=== PATIENT | female | born 1995 | race Two or more races ===

== ENCOUNTER 2016-06-07 21:17 | Emergency (ER) | payer OTHER ==
[2016-06-07 22:24] LABS: PH,URINE 6.5 (5.0-8.0); URINE BILIRUBIN NEGATIVE (NEGATIVE); URINE BLOOD NEGATIVE (NEGATIVE); URINE GLUCOSE (UA) NEGATIVE (NEGATIVE); URINE LEUKOCYTE ESTERASE NEGATIVE (NEGATIVE); URINE NITRITE NEGATIVE (NEGATIVE); URINE PROTEIN NEGATIVE (NEGATIVE); URINE UROBILINOGEN NORMAL (0-1 mg/dl)
[2016-06-07 22:25] LABS: URINE APPEARANCE CLEAR; URINE COLOR YELLOW
[2016-06-07 22:27] LABS: HCG,QUALITATIVE URINE POSITIVE
[2016-06-08 00:34] LABS: ABSOLUTE NEUTROPHIL COUNT 8.6 K/mm3 (1.8-7.7); BASO # 0.1 K/mm3 (0.0-0.2); BASO % 0.7 % (0.2-1.0); EOS # 0.2 (0.0-0.5); EOS % 1.2 % (0.9-2.9); HEMATOCRIT 42.6 % (37.0-47.0); HEMOGLOBIN 14.1 gm/l (12.0-16.0); IMM NEUT # 0.1 K/mm3 (0-0.2); IMM NEUT% 0.7 % (0-1); LYMPH # 3.8 (1.0-4.8); LYMPH % 28.3 % (15-45); MEAN CELL VOLUME 86.1 fl (81.0-99.0); MEAN CORPUSCULAR HEMOGLOBIN 28.5 pg (27.0-31.0); MEAN CORPUSCULAR HGB CONC 33.1 g/dl (33.0-37.0); MEAN PLATELET VOLUME 10.6 fl (7.4-10.4); MONO # 0.8 (0.0-0.8); MONO % 5.8 % (4-12); NEUT % 63.3 % (43-75); PLATELET COUNT 248 K/mm3 (130-400); RED CELL DISTRIBUTION WIDTH 14.3 % (11.5-14.5)
[2016-06-08] MEDS ORDERED: ACETAMINOPHEN 325 MG TABLET ONE (00:55)
[2016-06-08 01:05] LABS: ALB/GLOB RATIO 1.4 (>1.0); CALCIUM 10.2 mg/dL (8.6-10.3)
--- NOTE | 2016-06-08 09:39 | US ---
Exam: Complete obstetric ultrasound less than 14 weeks COMPARISON: None INDICATION: Low abdominal pain for 4 days. Findings: Transabdominal and transvaginal obstetric ultrasound less than 14 weeks was obtained. Real-time sonographic imaging demonstrated a single live intrauterine with a heart rate of 101 bpm. [place]-rump length of 4 mm correlates with a gestational age of 6 weeks 1 day and a sonographic ERIC of 01/31/2017. Gestational sac is normal in size and contour. No perigestational hemorrhage is identified. Normal yolk sac is seen. Right ovary measures 3.0 x 1.7 x 2.3 cm and left ovary measures 3.1 x 2.8 x 1.6 cm. There is no cystic or solid ovarian mass. Blood flow is present within both ovaries. There is no significant free fluid in cul-de-sac. IMPRESSION: No findings identified to explain low abdominal pain. Single live intrauterine approximately 6 weeks 1 day gestation with a heart rate of 101 bpm. Sonographic ERIC is 01/31/2017. Preliminary report transmitted to the emergency department from [facility] at 0214 hours 06/08/2016.
[2016-06-10 08:32] LABS: CHLAMYDIA BD Negative (Negative); N.GONORRHOEAE BD Negative (Negative); SOURCE Urine (())
== END 2016-06-08 03:30 | disposition home or self-care (01) ==
LOC: ED 21:17
DX: O20.0 Threatened abortion (principal); Z3A.08 8 weeks gestation of pregnancy; O99.331 Smoking (tobacco) complicating pregnancy, first trimester; F17.210 Nicotine dependence, cigarettes, uncomplicated
CPT/HCPCS: 87491; 87591; 81025; 84702; 85025; 80053; 81003; 76817; 76801; 86901; 99284 ×2; A9270